=== PATIENT | female | born 1985 | race Caucasian/White ===

== ENCOUNTER → 2019-08-20 10:38 | Outpatient (CLI) | payer OTHER, SELFPAY ==
--- NOTE | 2019-08-20 | DI.US.S_ITS ---
PROCEDURE: US OB <= 14 WEEKS FETUS INDICATIONS: SIZE AND DATES OUTSIDE/PRIOR DATING DATA: Last menstrual period (LMP): 06/26/19. LMP-based estimated date of delivery (ALICIA): 04/01/20. First dating scan (date and location): 08/20/19, this study. Estimated date of delivery (ALICIA) from first dating scan: 04/09/20. TECHNIQUE: Real-time scanning was performed of the fetus and maternal pelvic organs, with image documentation. Endovaginal scanning was also performed to better visualize the fetus and maternal ovaries. COMPARISON: None. FINDINGS: Embryo: May-rump length 8 mm correlates with a gestational age of 6 weeks 5 days, plus or -5 days. Heart rate 130 beats per minute. Measurement variability in dating: +/- 4 weeks by LMP, +/- 7 days by mean sac diameter (use before 6 weeks gestation if crown-rump length not able to be measured), +/- 5 days by crown-rump length (up to 8 weeks 6 days gestation), +/- 7 days by crown-rump length (up to 13 weeks 6 days gestation). Maternal organs: Ovaries normal considering gestational status with 2 simple cysts noted at the left ovary measuring up to 2.3 cm and 2.8 cm respectively. Limited images through the kidneys demonstrate no hydronephrosis. IMPRESSION: Single living intrauterine gestation with gestational age 6 weeks 5 days and delivery date projected to be centered on 04/09/20, plus or -5 days. Dictated by: Sandro Andrews M.D. on 08/20/2019 at 12:20 Approved by: Sandro Andrews M.D. on 08/20/2019 at 12:22
== END ==
PROVIDERS: PCP Registered Nurse Women's Health Care, Ambulatory; Visit Provider Student in an Organized Health Care Education/Training Program
DX: O26.841 Uterine size-date discrepancy, first trimester (principal); Z3A.01 Less than 8 weeks gestation of pregnancy
CPT/HCPCS: 76801

== ENCOUNTER → 2020-03-12 09:10 | Outpatient (CLI) | payer OTHER, SELFPAY ==
--- NOTE | 2020-03-12 09:13 | DI.US.S_ITS ---
PROCEDURE: US OB FOLLOW UP INDICATIONS: EFW; CHRIS; POSITION OUTSIDE/PRIOR DATING DATA: Last menstrual period (LMP): 06/26/19. LMP-based estimated date of delivery (ALICIA): 04/01/20. First dating scan (date and location): 08/20/19, this study. Estimated date of delivery (ALICIA) from first dating scan: 04/09/20.. TECHNIQUE: Real-time scanning was performed of the fetus, with image documentation and biometric measurements. Endovaginal scanning: No COMPARISON: [facility], OB <= 14 WEEKS FETUS, 08/20/2019, 10:54. FINDINGS: General: A single living intrauterine gestation is present. Presentation: Vertex. Placenta: Placental position is anterior, without previa. Amniotic fluid index: 19.5 cm, normal range is 5-24 cm. heart rate: 136 beats per minute. Maternal cervical canal: Not well-seen. biometrics: Biparietal diameter: 37 weeks 2 days Head circumference: 38 weeks 2 days Abdominal circumference: 39 weeks 1 day Femur length: 36 weeks 0 days Estimated gestational age from initial scan: 36 weeks 0 days Composite gestational age from present scan: 37 weeks 5 days Estimated weight and percentile: 3408 g; 95th percentile Measurement variability for biometric dating: +/- 7 days from 14 weeks to 15 weeks 6 days gestation, +/- 10 days from 16 weeks to 21 weeks 6 days gestation, +/- 2 weeks from 22 weeks to 27 weeks 6 days gestation, +/- 3 weeks for 28 weeks gestation or later. weight reference: 4500 g or EFW >90/95% is considered macrosomia or large for gestational age. EFW <10% is small for gestational age. EFW 5% or less is considered intra-uterine growth restriction. Other: Not applicable. IMPRESSION: 1. Single living IUP redemonstrated and interval growth is greater than expected with estimated weight 95th percentile. Developing macrosomia cannot be excluded and close clinical correlation and followup recommended. Dictated by: You FERGUSON Interpreted: Paty Ireland MD on 03/12/2020 at 10:45 Approved by: Paty Ireland MD, PhD on 03/12/2020 at 14:55
== END ==
PROVIDERS: PCP Student in an Organized Health Care Education/Training Program; Referring Provider Student in an Organized Health Care Education/Training Program; Visit Provider Student in an Organized Health Care Education/Training Program
DX: Z36.89 Encounter for other specified antenatal screening (principal); Z3A.37 37 weeks gestation of pregnancy
CPT/HCPCS: 76816

== ENCOUNTER → 2020-03-19 09:36 | Outpatient (ROUT) | payer OTHER, SELFPAY ==
[2020-03-20 16:31] LABS: Strep Grp B PCR NEG for Grp B Strep
== END ==
PROVIDERS: PCP Student in an Organized Health Care Education/Training Program; Visit Provider Student in an Organized Health Care Education/Training Program
DX: Z34.90 Encounter for supervision of normal pregnancy, unspecified, unspecified trimester (principal)
CPT/HCPCS: 87653

== ENCOUNTER → 2020-03-19 12:35 | Outpatient (CLI) | payer OTHER, SELFPAY ==
--- NOTE | 2020-03-19 | DI.US.S_ITS ---
PROCEDURE: US OB LIMITED INDICATIONS: CHRIS GROWTH OUTSIDE/PRIOR DATING DATA: Last menstrual period (LMP): 06/26/19. LMP-based estimated date of delivery (ALICIA): 04/01/20. First dating scan (date and location): 08/20/19, this study. Estimated date of delivery (ALICIA) from first dating scan: 04/09/20. TECHNIQUE: Real-time scanning was performed of the fetus, with image documentation and biometric measurements. Endovaginal scanning: No COMPARISON: None. FINDINGS: General: A single living intrauterine gestation is present. Presentation: Vertex. Placenta: Placental position is anterior, without previa. Amniotic fluid index: 13.1 cm, normal range is 5-24 cm. heart rate: 133 beats per minute. Maternal cervical canal: 4.8 cm long. Normal lower limit is 2.5 cm. biometrics: Biparietal diameter: 37 weeks 4 days Head circumference: 37 weeks 4 days Abdominal circumference: 37 weeks 3 days Femur length: 36 weeks 3 days Estimated gestational age from initial scan: 37 weeks 0 days Composite gestational age from present scan: 37 weeks 2 days Estimated weight and percentile: 3151 g; 63rd percentile Measurement variability for biometric dating: +/- 7 days from 14 weeks to 15 weeks 6 days gestation, +/- 10 days from 16 weeks to 21 weeks 6 days gestation, +/- 2 weeks from 22 weeks to 27 weeks 6 days gestation, +/- 3 weeks for 28 weeks gestation or later. weight reference: 4500 g or EFW >90/95% is considered macrosomia or large for gestational age. EFW <10% is small for gestational age. EFW 5% or less is considered intra-uterine growth restriction. Other: Not applicable. IMPRESSION: Living shelley IUP redemonstrated and interval growth is normal. Dictated by: You Marquis [facility] Interpreted: Paty Ireland MD on 03/19/2020 at 13:42 Approved by: Paty Ireland MD, PhD on 03/19/2020 at 16:46
== END ==
PROVIDERS: PCP Student in an Organized Health Care Education/Training Program; Referring Provider Student in an Organized Health Care Education/Training Program; Visit Provider Student in an Organized Health Care Education/Training Program
DX: Z36.89 Encounter for other specified antenatal screening (principal); Z3A.37 37 weeks gestation of pregnancy
CPT/HCPCS: 76815; 87653

== ENCOUNTER → 2020-03-28 09:28 | Outpatient (CLI) | payer OTHER, SELFPAY ==
[2020-03-29 10:29] LABS: COVID19 Sendout Not Detected (Not Detect)
== END ==
PROVIDERS: PCP Student in an Organized Health Care Education/Training Program; Visit Provider Physician Assistant
DX: Z01.812 Encounter for preprocedural laboratory examination (principal)
CPT/HCPCS: 87635

== ENCOUNTER 2020-03-31 19:28 | Observation (INO) | payer OTHER, SELFPAY ==
--- NOTE | 2020-03-31 20:36 | PM.OBHP.1 ---
OB HPI Date/Time Date of admission: 03/31/20 Date Patient Seen: 03/31/20 Time Patient Seen: 20:36 History of Present Condition Chief complaint: : 1 Para: 1 Narrative: Alessandra David is a 35 year old at 38w5d with ALICIA of 04/09/20 per first trimester ultrasound. She presents for induction of labor secondary to autosomal dominant hypophosphatemic maternal rickets and obesity with risk for macrosomia, US at 36w0d showed an EFW of 3408 g, 95th percentile. She has been followed closely by maternal medicine and endocrinology during her and they recommended delivery at 39+ weeks as long as her pelvis was adequate. MFM ultrasounds at 20 and 29 weeks were unremarkable. At 37 WGA, her home blood pressure started to trend up, 130s/140s/80s and she complained of ankle edema and visual twinkles. PIH labs were remarkable for a slightly elevated 24 hour urine protein at 240 mg. She is currently normotensive but reports that she continues to have visual changes and worsening edema. No right upper quadrant pain, headache, nausea, or vomiting. Her chronic medical conditions include diet-controlled hyperlipidemia, PCOS, and metabolic syndrome controlled with metformin. She has been on a prophylactic diabetic diet since her 1st trimester and her weight gain has been appropriate. Both 2nd and 3rd trimester glucolas were negative but her 28 week glucola was borderline. She does have chronic pain secondary to osteomalacia from rickets and has been dependent on hydrocodone/acetaminophen 5/325, 1 tab p.o. t.i.d.. She completely weaned off of this medication by 37 weeks. Finally, she has depression and anxiety that is chronically controlld with escitalopram 10 mg p.o. q.day and BuSpar 15 mg p.o. q.day. She weaned off both of these medications by 37 weeks. LABS/IMAGING: ABO O positive, antibody negative on 09/17/2019. Rubella immune. Hepatitis-B surface antigen negative. HIV, HSV 1 and 2 negative. GC/chlamydia negative. Treponemal antibody negative. Varicella titer positive. Pap smear plus HPV DNA negative on 09/03/19. Urine culture negative on 09/03/19. Hemoglobin/hematocrit 13.0/38.4 on 09/17/19. Repeat hemoglobin/hematocrit 13.3/39.3 on 03/19/20. TSH within normal limits. 1 hour Glucola 89 on 11/06/19 and 139 on 01/16/20. Three hour glucola on 01/21/20 was negative but borderline. GBS negative on 03/19/20. NIPT negative, 09/17/19, female. Dating US 08/20/19: Single live IUP, 6w5d, ALICIA 04/09/2020 Anatomy Scan 11/21/2019: Within normal limits, anterior placenta without previa Growth Scan 03/12/20: EFW 3408 g, 95th percentile, CHRIS 19.5 cm, vertex Growth Scan 03/19/20: EFW 3151 g, 63rd percentile, CHRIS 13.1 cm, vertex OBSTETRIC HISTORY: GYNECOLOGICAL HISTORY: None PAST MEDICAL HISTORY: 1. Autosomal dominant hypophosphatemic rickets, diagnosed at , multiple femur fractures 2. 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 Obesity, BMI 37.97 4. Hyperlipidemia, diet controlled 5. Metabolic syndrome, on prophylactic metformin 6. Depression 7. Anxiety 8. PCOS 9. Vitamin-D deficiency PAST SURGICAL HISTORY: Right knee arthroscopy Achilles tendon repair Spur removal, left ankle Osteotomies, multiple FAMILY HISTORY: Father: Hyperlipidemia Mother: Prediabetes, depression, hypertension, osteoporosis, rickets Siblings: Depression, rickets Maternal grandmother: Diabetes, rickets SOCIAL HISTORY: High school graduate, works at [employer] in [place]. to Emil, works in the [employer]. Emil involved and very supportive. They were unable to conceive for many years, thrilled to be . [facility] Social History Smoking Status: Former smoker Meds Home Medications and Allergies Home Medications Medication Instructions Recorded Confirmed Type BusPIRone Hydrochloride (BUSPAR 15 mg PO BID #0 08/14/12 History DIVIDOSE~) citalopram [Celexa] 10 mg PO QDAY #0 08/14/12 History Allergies Allergy/AdvReac Type Severity Reaction Status Date / Time codeine [CODEINE] Allergy Unknown Verified 03/28/20 09:31 Sulfa (Sulfonamide Allergy Unknown Verified 03/31/20 19:38 Antibiotics) Review of Systems Review of Systems ROS: Yes All systems reviewed with the patient and are negative except as otherwise documented Exam Narrative Exam Narrative: General: NAD Skin: Color unremarkable, no rash nor lesions HEENT: Neck supple with midline trachea Lungs: CTAB Heart: Normal rate, and regular rhythm, S1, S2 normal, no murmur, click, rub or gallop Abdomen: Gravid, soft, non-tender Extremities: No cord, no edema, no cyanosis Pelvis: Normal female external genitalia Presentation: vertex Cervix: Fingertip/-50/-3/posterior/soft Monitoring: Variability: Moderate Baseline: 135 Accelerations: Present Decelerations: Absent Contractions: Intermittent Strength: Mild Objective Labs Result Diagrams: 03/31/20 20:15 03/31/20 21:25 Assessment and Plan Assessment and Plan Assessment and Plan narrative: 1. IUP at 38w5d 2. 3. Autosomal dominant hypophosphatemic rickets, maternal 4. Maternal obesity, BMI 37.97 5. Risk for macrosomia 6. Risk for preeclampsia 7. Borderline gestational diabetes 8. Metabolic syndrome, chronic 9. Hyperlipidemia, chronic 10. 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 Depression 12. Anxiety 13. Maternal short stature, 4'11 Plan: Admit to Labor and delivery for cervadil induction with routine orders. Will also check PIH labs and follow vitals signs closely. Patient has risk factors for a failed induction secondary to her unfavorable cervix, possible macrosomia, maternal rickets presenting potential challenges with full external hip rotation during the 2nd stage, and her short stature. Per Dr. Garcia, a trial of labor is reasonable if she is able to soften her cervix tonight and if the head engages into the pelvic canal. If that does not happen, Dr. Garcia did say that a planned is reasonable and should occur in the 39-40 week window, with no maternal or benefit to prolongation past 39+ weeks. Hopeful patient will be able to ripen her cervix tonight and achieve a vaginal . Will check on her again in the morning, sooner if needed. Questions answered, appropriate consents will be signed.
[2020-03-31] MEDS: DINOPROSTONE VAG (CERVIDIL) 10 MG VAG (20:42)
[2020-03-31 21:26] LABS: Add Manual Diff / Slide Review NO; Basophils Absolute Auto 0 /uL (0-100); Basophils Percent Auto 0.3 % (0-2); Eosinophils Absolute Auto 100 /uL (0-450); Eosinophils Percent Auto 0.9 % (2-4); Hematocrit 39.6 % (36-46); Hemoglobin 13.5 g/dL (12.0-16.0); Lymphocytes Absolute Auto 2300 /uL (1100-4500); Lymphocytes Percent Auto 21.5 % (25-40); Mean Corpuscular HGB Conc 34.1 % (30-36); Mean Corpuscular Hemoglobin 30.1 PG (26-34); Mean Corpuscular Volume 88.1 fL (80-100); Monocytes Absolute Auto 800 /uL (0-900); Monocytes Percent Auto 7.2 % (3-14); Neutrophils Absolute Auto 7300 /uL (1500-7000); Neutrophils Percent Auto 70.1 % (50-75); Platelet Count 207 X10^3/uL (150-400); Red Cell Distribution Width 14.6 % (11.6-14.8); White Blood Cell Count 10.5 X10^3/uL (4.5-11.0)
[2020-03-31 21:41] LABS: Aspartate Aminotransferase 25 IU/L (14-36); BUN Creatinine Ratio 27.9 (6-22); Blood Urea Nitrogen 12 mg/dL (7-17); Estimated Glomerular Filt Rate > 60.0 mL/min (>60); Uric Acid 5.8 mg/dL (2.5-6.2)
[2020-03-31 21:59] VITALS: BP 123/70
--- NOTE | 2020-04-01 08:51 | PM.OBPNLAB ---
Date/Time Date Patient Seen: 04/01/20 Time Patient Seen: 08:52 Pain Control Pain control: tolerating well Comments: Doing well, not much sleep overnight. Feeling contractions but nothing I can't handle. Cervidil in place, ready for removal. Pelvic Exam Dilation (cm): 1 Effacement (%): 50 station: -3 Amniotic membrane status: Intact Comments: posterior, soft Contractions Contractions on admission: irregular Monitor mode: External Contraction frequency (min): 5 Contraction duration (min): 1 Contraction pattern: Irregular Contraction intensity: Moderate Status status: Category ll Heart Rate Baseline: 125 Monitor Accelerations: Present Monitor Decelerations: Variable Monitor Variability: Moderate Assessment and Plan Assessment: induction ongoing Plan: continuous present management Comments: 1. Will start pitocin after commercial lines manager appropriate, 11 am. In the meantime, patient will walk and bounce on birthing ball.
--- NOTE | 2020-04-01 12:56 | PM.OBPNLAB ---
Date/Time Date Patient Seen: 04/01/20 Time Patient Seen: 12:57 Pain Control Pain control: tolerating well Comments: Induction on hold secondary to staffing. Patient has been off the monitor, contractions have spaced out. Has had a shower and food, feeling well. Pelvic Exam Dilation (cm): 1 Effacement (%): 50 station: -3 Amniotic membrane status: Intact Contractions Monitor mode: None Assessment and Plan Assessment: induction ongoing Comments: 1. Will start Pitocin induction now that staffing is arranged, hopeful for .
[2020-04-01] MEDS: LACTATED RINGERS 1,000 ML 100 ML IV ×2 (13:46→19:39)
[2020-04-01] MEDS: OXYTOCIN PREMIX 30 UNIT/500 ML PLAST..BAG IV (13:46)
--- NOTE | 2020-04-01 18:28 | PM.OBPNLAB ---
Date/Time Date Patient Seen: 04/01/20 Time Patient Seen: 18:28 Pelvic Exam Dilation (cm): 1 Effacement (%): 50 station: -3 Amniotic membrane status: Intact Comments: 1.5/50/-3/posterior/soft Contractions Monitor mode: None Pitocin rate (mU/min): 17 Contraction frequency (min): 3 Contraction duration (min): 1 Contraction pattern: Regular Contraction intensity: Moderate Status status: Category ll Heart Rate Baseline: 135 Monitor Accelerations: Present Monitor Decelerations: Variable Monitor Variability: Moderate Assessment and Plan Assessment: induction ongoing Plan: continuous present management
--- NOTE | 2020-04-01 21:11 | PM.EVENT ---
Event Note Date Patient Seen: 04/01/20 Time Patient Seen: 21:11 Event Note: Called by OB RN regarding urgent staffing shortage tonight. Unable to continue pitocin induction as one-to-one care is unavailable. Will plan to labor rest patient overnight and restart pitocin when staffing again available between 3-7 am. Mother and fetus otherwise doing well.
[2020-04-01] MEDS: hydrOXYzine pamoate 25 MG CAPSULE 50 MG PO (22:16)
--- NOTE | 2020-04-02 08:27 | P.DS_ITS ---
Discharge Providers Provider Date of admission: 03/31/20 19:28 Discharge Date: 04/02/20 Primary care physician: Tanisha More MD Discharge provider: Tanisha More MD Summary Hospital Course Date Patient Seen: 04/02/20 Time Patient Seen: 08:15 Hospital Course: Patient was admitted for Cervidil induction but on the following morning, due to staffing shortages, Pitocin was delayed and not able to be started until mid- day. By evening shift change that same day, there were again staffing shortages and patient was not able to be continued on pitocin throughout the night. On morning of discharge, patient was emotionally taxed from the starting and stopping of her induction and decided to electively return after the holiday when staffing numbers were back to normal and retry her induction on 04/07/20. She will still be in the recommended delivery window per MFM at that time. Her cervix was closed upon admission and is now 1.5/50/03/pos terior/soft. Discussed with patient that additional time would be advantageous for a more favorable induction and she understands to return in the meantime with spontaneous labor. Patient has risk factors for preeclampsia including a mildly elevated 24 hour urine protein, nondiagnostic for preeclampsia. Admission [facility] labs were within normal limits and blood pressures throughout her stay were normal. Time spent on Discharge and Coordination of post-hospital care: 35 minutes Status at Discharge Cognitive/behavioral status at discharge: at baseline, oriented Functional status at discharge: independent ambulation Overall status at discharge: patient is back to baseline Time Spent with Patient Time attestation: Total time spent providing and/or coordinating discharge services: Objective Labs Result Diagrams: 03/31/20 20:15 03/31/20 21:25 Exam Narrative Exam Narrative: General: NAD Skin: Color unremarkable, no rash nor lesions HEENT: Neck supple with midline trachea Lungs: CTAB Heart: Normal rate, and regular rhythm, S1, S2 normal, no murmur, click, rub or gallop Abdomen: Gravid, soft, non-tender Extremities: No cord, no edema, no cyanosis Pelvis: Normal female external genitalia Presentation: vertex Cervix: 1.5/-50/-3/posterior/soft Monitoring: Variability: Moderate Baseline: 135 Accelerations: Present Decelerations: Variables Contractions: Intermittent Strength: mild Discharge Plan Discharge Plan Patient Disposition: Home Discharge orders & Medications Prescriptions: Discontinued BusPIRone Hydrochloride (BUSPAR DIVIDOSE~) 15 mg PO BID Qty: 0 RF: 0 citalopram [Celexa] 10 MG tablet 10 mg PO QDAY Qty: 0 RF: 0 Follow up/Referrals: Tanisha More MD [Primary Care Provider] - (Induction on Monday, April at 0700 at [facility]) Diet/Activity/Treatments Diet: Diet as Tolerated Activity: as tolerated Skin/Wound/Dressing Care Report to your healthcare provider any signs of infection, such as:: chills, fever, increased pain and unusual drainage Visit Report/Discharge Packet Visit Report Forms: Patient Portal/API, Stroke Signs & Symptoms Discharge Data Primary Care Provider: Tanisha More Attending Provider: Tanisha More Admit Date/Time: 03/31/20 19:28 Discharges patient from system. Discharge Date/Time: 04/02/20 08:38
== END 2020-04-02 08:38 | disposition home or self-care (01) ==
PROVIDERS: Admitting Provider Student in an Organized Health Care Education/Training Program; PCP Student in an Organized Health Care Education/Training Program; Referring Provider Student in an Organized Health Care Education/Training Program; Visit Provider Student in an Organized Health Care Education/Training Program
DX: O99.283 Endocrine, nutritional and metabolic diseases complicating pregnancy, third trimester (principal); O12.23 Gestational edema with proteinuria, third trimester; O99.213 Obesity complicating pregnancy, third trimester; E72.09 Other disorders of amino-acid transport; Z3A.38 38 weeks gestation of pregnancy
CPT/HCPCS: 36415; 59050; 59200; 84450; 84550; 85025; 86850; 86900; 86901; G0378; G0379; J2590

== ENCOUNTER 2020-04-07 00:24 | Inpatient (IN) | payer OTHER, SELFPAY ==
--- NOTE | 2020-04-07 00:41 | DI.US.S_ITS ---
PROCEDURE: US OB >= 14 WEEKS FETUS INDICATIONS: POSITION OUTSIDE/PRIOR DATING DATA: Last menstrual period (LMP): 06/26/19. LMP-based estimated date of delivery (ALICIA): 04/01/20. First dating scan (date and location): 08/20/19. Estimated date of delivery (ALICIA) from first dating scan: 04/09/20. TECHNIQUE: Real-time scanning was performed of the fetus, with image documentation and biometric measurements. Endovaginal scanning: Not needed for this study COMPARISON: None. FINDINGS: General: A single living intrauterine gestation is present. Presentation: Breech. Placenta: Placental position is anterior, without previa. Amniotic fluid index: 6.3 cm as a single pocket, oligohydramnios. heart rate: 158 beats per minute. Maternal cervical canal: Not visualized and the patient declined transvaginal scanning. IMPRESSION: Breech presentation, amniotic fluid index of 6.3 cm as a single pocket-oligohydramnios. The cervix could not be adequately visualized by transabdominal scanning, the patient declined transvaginal scanning. Dictated by: Sandro Andrews M.D. on 04/07/2020 at 8:28 Approved by: Sandro Andrews M.D. on 04/07/2020 at 8:33
[2020-04-07 01:00] VITALS: BP 137/83
[2020-04-07 01:14] LABS: Add Manual Diff / Slide Review NO; Basophils Absolute Auto 100 /uL (0-100); Basophils Percent Auto 0.4 % (0-2); Eosinophils Absolute Auto 100 /uL (0-450); Eosinophils Percent Auto 0.7 % (2-4); Hematocrit 40.6 % (36-46); Hemoglobin 13.4 g/dL (12.0-16.0); Lymphocytes Absolute Auto 1900 /uL (1100-4500); Lymphocytes Percent Auto 12.8 % (25-40); Mean Corpuscular HGB Conc 33.1 % (30-36); Mean Corpuscular Hemoglobin 29.3 PG (26-34); Mean Corpuscular Volume 88.6 fL (80-100); Monocytes Absolute Auto 900 /uL (0-900); Monocytes Percent Auto 6.1 % (3-14); Neutrophils Absolute Auto 12000 /uL (1500-7000); Platelet Count 214 X10^3/uL (150-400); Red Blood Cell Count 4.58 X10^6/uL (4.0-5.2); Red Cell Distribution Width 14.8 % (11.6-14.8)
--- NOTE | 2020-04-07 01:27 | PM.OBHP.1 ---
OB HPI Date/Time Date of admission: 04/07/20 Date Patient Seen: 04/07/20 Time Patient Seen: 01:29 History of Present Condition Chief complaint: Evaluation of Labor : 1 Para: 0 Estimated Date of Delivery: 02/08/20 Narrative: Alessandra David is a 35 year old at 39w5d with ALICIA of 04/09/20 per first trimester ultrasound. She presents with active labor complicated by footling breech presentation, new and confirmed by bedside US. Membranes intact, CHRIS approximately 6, 3 cm of dilation. She has had two late third trimester ultrasounds at 36 and 37 WGA, both vertex. She recently had an attempted induction of labor at 38w5d secondary to autosomal dominant hypophosphatemic maternal rickets and obesity with risk for macrosomia as US at 36w0d showed an EFW of 3408 g, 95th percentile. Induction was discontinued secondary to beater out leveling machine shortages during the holiday weekend, patient was 1.5 cm dilated upon discharge. Per digital cervical exam and Zia's maneuvers, she was vertex at that time. She reports that she had lots of big movements over the weekend and started to feel more pelvic pressure in the last 2 nights. Her contractions became more intense about 6 hours prior to presentation with contractions every 3-5 minutes. She has been followed closely by maternal medicine and endocrinology during her and they recommended delivery at 39+ weeks as long as her pelvis was adequate. MFM ultrasounds at 20 and 29 weeks were unremarkable. At 37 WGA, her home blood pressure started to trend up, 130s-140s/80s and she complained of ankle edema and visual twinkles. PIH labs were remarkable for a slightly elevated 24 hour urine protein at 240 mg. Repeat PIH labs at time of admission for her induction were within normal limits. She was normotensive throughout her induction and is normotensive now. She has had ongoing visual changes and ankle edema. No right upper quadrant pain, headache, nausea, or vomiting. Her chronic medical conditions include diet-controlled hyperlipidemia, PCOS, and metabolic syndrome controlled with metformin. She has been on a prophylactic diabetic diet since her 1st trimester and her weight gain has been appropriate. Both 2nd and 3rd trimester glucolas were negative but her 28 week glucola was borderline. She does have chronic pain secondary to osteomalacia from rickets and has been dependent on hydrocodone/acetaminophen 5/325, 1 tab p.o. t.i.d.. She completely weaned off of this medication by 37 weeks. Finally, she has depression and anxiety that is chronically controlled with escitalopram 10 mg p.o. q.day and BuSpar 15 mg p.o. q.day. She weaned off both of these medications by 37 weeks. LABS/IMAGING: ABO O positive, antibody negative on 09/17/2019. Rubella immune. Hepatitis-B surface antigen negative. HIV, HSV 1 and 2 negative. GC/chlamydia negative. Treponemal antibody negative. Varicella titer positive. Pap smear plus HPV DNA negative on 09/03/19. Urine culture negative on 09/03/19. Hemoglobin/hematocrit 13.0/38.4 on 09/17/19. Repeat hemoglobin/hematocrit 13.3/39.3 on 03/19/20. TSH within normal limits. 1 hour Glucola 89 on 11/06/19 and 139 on 01/16/20. Three hour glucola on 01/21/20 was negative but borderline. GBS negative on 03/19/20. NIPT negative, 09/17/19, female. Dating US 08/20/19: Single live IUP, 6w5d, ALICIA 04/09/2020 Anatomy Scan 11/21/2019: Within normal limits, anterior placenta without previa Growth Scan 03/12/20: EFW 3408 g, 95th percentile, CHRIS 19.5 cm, vertex Growth Scan 03/19/20: EFW 3151 g, 63rd percentile, CHRIS 13.1 cm, vertex OBSTETRIC HISTORY: GYNECOLOGICAL HISTORY: None PAST MEDICAL HISTORY: 1. Autosomal dominant hypophosphatemic rickets, diagnosed at , multiple femur fractures 2. 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 Obesity, BMI 37.97 4. Hyperlipidemia, diet controlled 5. Metabolic syndrome, on prophylactic metformin 6. Depression 7. Anxiety 8. PCOS 9. Vitamin-D deficiency PAST SURGICAL HISTORY: Right knee arthroscopy Achilles tendon repair Spur removal, left ankle Osteotomies, multiple FAMILY HISTORY: Father: Hyperlipidemia Mother: Prediabetes, depression, hypertension, osteoporosis, rickets Siblings: Depression, rickets Maternal grandmother: Diabetes, rickets SOCIAL HISTORY: High school graduate, works at [employer] in [place]. to Emil, works in the [employer]. Emil involved and very supportive. They were unable to conceive for many years, thrilled to be . Evaluation Evaluation Laboratory results: Laboratory Tests 04/07/20 01:00 WBC 15.0 H RBC 4.58 Hgb 13.4 Hct 40.6 MCV 88.6 MCH 29.3 MCHC 33.1 RDW 14.8 Plt Count 214 Neut % (Auto) 80.0 H Lymph % (Auto) 12.8 L [place] % (Auto) 6.1 Eos % (Auto) 0.7 L Baso % (Auto) 0.4 Neut # (Auto) 03932 H Lymph # (Auto) 1900 [place] # (Auto) 900 Eos # (Auto) 100 Baso # (Auto) 100 PFSH Social History Smoking Status: Never smoker Meds Home Medications and Allergies Allergies Allergy/AdvReac Type Severity Reaction Status Date / Time sumatriptan [From Imitrex] Allergy Intermediate Hives Verified 04/07/20 00:58 codeine [CODEINE] Allergy Unknown Verified 03/28/20 09:31 Sulfa (Sulfonamide Allergy Unknown Verified 03/31/20 19:38 Antibiotics) Review of Systems Review of Systems ROS: Yes All systems reviewed with the patient and are negative except as otherwise documented Exam Vital Signs (past 8 hours): - 04/07/20 01:00 Blood Pressure 137/83 Narrative Exam Narrative: General: NAD Skin: Color unremarkable, no rash nor lesions HEENT: Neck supple with midline trachea Lungs: CTAB Heart: Normal rate, and regular rhythm, S1, S2 normal, no murmur, click, rub or gallop Abdomen: Gravid, soft, non-tender Extremities: No cord, no edema, no cyanosis Pelvis: Normal female external genitalia Presentation: footling breech Cervix: 3/90/-2/midline/soft Monitoring: Variability: Moderate Baseline: 135 Accelerations: Present Decelerations: Variables Contractions: q3 minutes Strength: firm Objective Labs Result Diagrams: 04/07/20 01:00 Labs: Laboratory Results - last 24 hr 04/07/20 01:00 WBC 15.0 H RBC 4.58 Hgb 13.4 Hct 40.6 MCV 88.6 MCH 29.3 MCHC 33.1 RDW 14.8 Plt Count 214 Neut % (Auto) 80.0 H Lymph % (Auto) 12.8 L [place] % (Auto) 6.1 Eos % (Auto) 0.7 L Baso % (Auto) 0.4 Neut # (Auto) 41314 H Lymph # (Auto) 1900 [place] # (Auto) 900 Eos # (Auto) 100 Baso # (Auto) 100 Assessment and Plan Assessment and Plan Assessment and Plan narrative: 1. IUP at 39w5d 2. 3. Footling breech 4. Autosomal dominant hypophosphatemic rickets, maternal 5. Maternal obesity, BMI 37.97 6. Risk for macrosomia 7. Risk for preeclampsia 8. Borderline gestational diabetes 9. Metabolic syndrome, chronic 10. Hyperlipidemia, chronic 11. Chronic pain secondary to osteomalacia from rickets, narcotic dependent, now weaned 12. Depression 13. Anxiety 14. Maternal short stature, 4'11 Plan: Will proceed with emergent . Questions answered, appropriate consents will be signed.
[2020-04-07] MEDS: GENTAMICIN IV (01:53)
[2020-04-07] MEDS: LACTATED RINGERS 1,000 ML 120 ML IV ×2 (01:53→02:55)
[2020-04-07] MEDS: SODIUM CHLORIDE 0.9% IV (01:53)
[2020-04-07] MEDS: CLINDAMYCIN 900 MG/50 ML PIGGYBACK 50 MG IV (02:01)
--- NOTE | 2020-04-07 02:26 | SUR.OPER ---
VIABLE FEMALE INFANT DELIVERED AT 0227. CORD BLOOD AND PLACENTA TO OB WITH RN.
[2020-04-07 03:17] VITALS: BP 114/69; PULSE 95; RESP 13; TEMP 36.3; O2SAT 98
[2020-04-07 03:22] VITALS: BP 131/76; PULSE 89; RESP 11; TEMP 36; O2SAT 98
[2020-04-07 03:27] VITALS: BP 129/75; PULSE 94; RESP 11; TEMP 36; O2SAT 98
[2020-04-07 03:32] VITALS: BP 124/73; PULSE 86; RESP 14; TEMP 35.9; O2SAT 99
--- NOTE | 2020-04-07 03:48 | P.OP_ITS ---
Operative Date/Time/Diagnoses Date of procedure: 04/07/20 Time of procedure: 03:48 Pre-op diagnosis: 1. IUP at 39w5d 2. 3. Footling breech 4. Autosomal dominant hypophosphatemic rickets, maternal 5. Maternal obesity, BMI 37.97 6. Risk for macrosomia 7. Risk for preeclampsia 8. Borderline gestational diabetes 9. Metabolic syndrome, chronic 10. Hyperlipidemia, chronic 11. Chronic pain secondary to osteomalacia from rickets, narcotic dependent, now weaned 12. Depression 13. Anxiety 14. Maternal short stature, 4 Post-op diagnosis: same (plus status post primary low transverse section) Procedure & Clinicians Procedure: Primary section, low-transverse Same procedure as scheduled: Yes Indications: 1. IUP at 39w5d 2. 3. Footling breech 4. Autosomal dominant hypophosphatemic rickets, maternal 5. Maternal obesity, BMI 37.97 6. Risk for macrosomia 7. Risk for preeclampsia 8. Borderline gestational diabetes 9. Metabolic syndrome, chronic 10. Hyperlipidemia, chronic 11. Chronic pain secondary to osteomalacia from rickets, narcotic dependent, now weaned 12. Depression 13. Anxiety 14. Maternal short stature, Surgeon: Tanisha More Telephonic Case Manager: Sundar Baird Click Yes if Unassisted: No Anesthesia Type: Spinal Operative Notes Findings: Viable female infant, weight 7 lb 10 oz. Apgars 7/9, footling breech presentation. Normal uterus, tubes, and ovaries. Closure Type: primary Specimen(s): none sent Estimated Blood Loss (mL): 200 Blood products transfused: none Procedure in detail: Anesthesia: Spinal Complications: None Estimated blood loss: 200 Fluids: 1600 CC crystalline Urine output: 150 cc clear urine at end of procedure. The patient was taken to the operating room where spinal anesthesia was found to be adequate. She was then prepared and draped in the normal sterile fashion in the dorsal supine position with a leftward tilt. A Pfannenstiel skin incision was then made with a scalpel and carried through to the underlying layer of fascia. The fascia was incised in the midline and the incision extended laterally with Harper scissors. The superior aspect of the fascial incision was then grasped with the Marcelino clamps elevated, and the underlying rectus muscles dissected off bluntly. Attention was then turned to the inferior aspect of this incision, which in a similar fashion, was grasped, tented up with the Marcelino clamps, and the rectus muscle dissected off bluntly. The rectus muscles were then in the midline, and the peritoneum identified, tented up, and entered sharply with Metzenbaum scissors. The peritoneal incision was then extended superiorly and inferiorly with good visualization of the bladder. The bladder blade was then inserted and the vesicouterine peritoneum identified, grasped with pickups, and entered sharply with Metzenbaum scissors. This incision was then extended laterally and the bladder flap created digitally. The bladder blade was then reinserted and the lower uterine uterine segment incised in a transverse fashion with the scalpel. The uterine incision was then extended laterally digitally. The bladder blade was removed and the 's feet, body, and head delivered atraumatically. The nose and mouth were suctioned with DeLee suction trap and the cord clamped and cut. They was handed off to the nurses in attendance. The placenta was then removed manually; the uterus exteriorized, and cleared of all clots and debris. The uterine incision was repaired with 0 chromic in a running locking fashion. A second layer of the same suture was used to obtain excellent hemostasis. The bladder flap was repaired with 3-0 Vicryl in a running stitch and the uterus returned to the abdomen. The gutters were cleared of all clots and the peritoneum closed with 3-0 Vicryl. The rectus was loosely approximated using 0 chromic. The fascia was reapproximated with 0 Vicryl in a running fashion. The subcutaneous layer was closed with 2-0 chromic. The skin was closed with sutures. The patient tolerated the procedure well. Sponge lap and needle counts were correct x2. Clindamycin and gentamicin was given at beginning a procedure. The patient was taken to the recovery room in stable condition. Complications: none Post-operative Condition: stable Disposition: PACU Plan for aftercare: 1. Routine care.
--- NOTE | 2020-04-07 03:52 | SUR.PHASEI ---
Patient taken to room in center. Left in stable condition with receiving RN at bedside.
[2020-04-07] MEDS: TERBUTALINE 1 MG/ML VIAL 0.25 MG SUBCUT (04:50)
[2020-04-07] MEDS: LACTATED RINGERS 1,000 ML 100 ML IV (04:54)
[2020-04-07] MEDS: diphenhydrAMINE 50 MG/ML VIAL 25 MG IV ×2 (05:37→16:11)
[2020-04-07 08:02] LABS: COVID19 -Nasal RAPID Negative (Negative)
[2020-04-07] MEDS: PRENATAL VIT,CALC/IRON/FOLIC 1 TABLET 1 TAB PO (08:42)
[2020-04-07] MEDS: DOCUSATE 250 MG CAPSULE PO (08:42)
[2020-04-07] MEDS: KETOROLAC 30 MG/ML VIAL IV ×3 (08:58→21:05)
[2020-04-07] MEDS: hydrOXYzine pamoate 25 MG CAPSULE 100 MG PO (21:03)
[2020-04-08 04:32] LABS: Add Manual Diff / Slide Review NO; Basophils Absolute Auto 100 /uL (0-100); Basophils Percent Auto 0.4 % (0-2); Eosinophils Absolute Auto 100 /uL (0-450); Eosinophils Percent Auto 0.8 % (2-4); Hematocrit 34.6 % (36-46); Hemoglobin 11.4 g/dL (12.0-16.0); Lymphocytes Absolute Auto 1600 /uL (1100-4500); Lymphocytes Percent Auto 12.4 % (25-40); Mean Corpuscular HGB Conc 32.9 % (30-36); Mean Corpuscular Hemoglobin 29.3 PG (26-34); Monocytes Absolute Auto 900 /uL (0-900); Monocytes Percent Auto 7.1 % (3-14); Neutrophils Absolute Auto 10500 /uL (1500-7000); Neutrophils Percent Auto 79.3 % (50-75); Platelet Count 180 X10^3/uL (150-400); Red Blood Cell Count 3.89 X10^6/uL (4.0-5.2); Red Cell Distribution Width 14.7 % (11.6-14.8); White Blood Cell Count 13.3 X10^3/uL (4.5-11.0)
[2020-04-08] MEDS: IBUPROFEN 600 MG TABLET PO ×3 (04:32→19:30)
[2020-04-08] MEDS: OXYCODONE IR 5 MG TABLET PO ×2 (04:33→09:42)
--- NOTE | 2020-04-08 07:47 | P.PNOB_ITS ---
Subjective - OB Subjective Narrative: Doing well, pain is controlled with medications. She has taken only 1 narcotic since delivery. is going well, we are learning. Lochia less than menses. Advancing diet, tolerated well with no nausea. Excited to be taking a shower today. Has not ambulated much otherwise. Nolen out, voiding without discomfort. Positive flatus, no BM. Date Patient Seen: 04/08/20 Time Patient Seen: 07:48 Exam Vital Signs (past 8 hours): Oxygen Delivery Method Room Air Narrative Exam Narrative: General: NAD Skin: Color unremarkable, no rash nor lesions HEENT: Neck supple with midline trachea Lungs: CTAB Heart: Normal rate and regular rhythm, S1, S2 normal, no murmurs, click, rub or gallop Abdomen: FF, U-2, soft, non-tender, +BS Extremities: No edema, no cyanosis Objective Labs Result Diagrams: 04/08/20 04:10 Labs: Laboratory Results - last 24 hr 04/07/20 04/08/20 01:50 04:10 WBC 13.3 H RBC 3.89 L Hgb 11.4 L Hct 34.6 L MCV 89.0 MCH 29.3 MCHC 32.9 RDW 14.7 Plt Count 180 Neut % (Auto) 79.3 H Lymph % (Auto) 12.4 L [place] % (Auto) 7.1 Eos % (Auto) 0.8 L Baso % (Auto) 0.4 Neut # (Auto) 39215 H Lymph # (Auto) 1600 [place] # (Auto) 900 Eos # (Auto) 100 Baso # (Auto) 100 COVID-19 PCR Negative Assessment & Plan Plan day: 1 plan OB: routine postop care Comments: 1. Status post Primary LTCS at 39w5d secondary to footling breech 2. 3. Autosomal dominant hypophosphatemic rickets, maternal 4. Maternal obesity, BMI 37.97 5. Metabolic syndrome, chronic 6. Hyperlipidemia, chronic 7. Chronic pain secondary to osteomalacia from rickets, narcotic dependent, now weaned 8. Depression 9. Anxiety Plan: Routine postoperative care. Patient encouraged to ambulate today t.i.d. Will continue with support. Plan for discharge tomorrow. Patient is doing very well with pain management, may not be interested in continuing with her narcotics . Watching depression and anxiety closely, does not want to restart her medications at this time. Time Spent With Patient Time: Total time spent is greater than 50% in coordination of care (as documented) at patient's floor/unit and/or counseling patient: Time with patient: Greater than 35 minutes
[2020-04-08] MEDS: PRENATAL VIT,CALC/IRON/FOLIC 1 TABLET 1 TAB PO (09:43)
[2020-04-08] MEDS: DOCUSATE 250 MG CAPSULE PO (09:43)
[2020-04-08] MEDS: HYDROCODONE/ACET 5/325 TABLET 2 TAB PO ×4 (12:35→23:59)
[2020-04-08 16:46] VITALS: TEMP 36.4
[2020-04-08] MEDS: MAG HYDROX/ALUM/SIMETH 30 ML UDC PO (19:47)
[2020-04-08 20:31] VITALS: BP 124/73; PULSE 86; RESP 14; TEMP 36.4
[2020-04-09] MEDS: IBUPROFEN 600 MG TABLET PO ×2 (02:07→08:32)
[2020-04-09] MEDS: MAG HYDROX/ALUM/SIMETH 30 ML UDC PO (02:08)
[2020-04-09] MEDS: HYDROCODONE/ACET 5/325 TABLET 2 TAB PO ×2 (04:05→08:31)
[2020-04-09 06:54] LABS: Add Manual Diff / Slide Review NO; Basophils Absolute Auto 100 /uL (0-100); Basophils Percent Auto 0.6 % (0-2); Eosinophils Absolute Auto 200 /uL (0-450); Eosinophils Percent Auto 2.4 % (2-4); Hematocrit 34.4 % (36-46); Hemoglobin 11.6 g/dL (12.0-16.0); Lymphocytes Absolute Auto 1800 /uL (1100-4500); Lymphocytes Percent Auto 18.3 % (25-40); Mean Corpuscular HGB Conc 33.6 % (30-36); Mean Corpuscular Hemoglobin 30.1 PG (26-34); Mean Corpuscular Volume 89.4 fL (80-100); Monocytes Absolute Auto 700 /uL (0-900); Monocytes Percent Auto 6.7 % (3-14); Neutrophils Absolute Auto 7200 /uL (1500-7000); Platelet Count 226 X10^3/uL (150-400); Red Blood Cell Count 3.85 X10^6/uL (4.0-5.2); Red Cell Distribution Width 14.8 % (11.6-14.8)
--- NOTE | 2020-04-09 08:23 | PM.OBDS.1 ---
Discharge Providers Provider Date of admission: 04/07/20 00:24 Discharge Date: 04/09/20 Primary care physician: Tanisha More MD Consults: 04/07/20 01:33 Consult to Anesthesiology Urgent Comment: interface control officer Consulting Provider: Aida Kraus Reason for consultation: Has provider been notified: Yes 04/07/20 03:56 Consult to Resident Associate Routine Comment: Discharge provider: Tanisha More MD Summary Hospital Course Date Patient Seen: 04/09/20 Time Patient Seen: 08:45 Procedures: 1. Primary low-transverse section, Dr. More, 04/07/20, no complications 2. Spinal anesthesia, Dr. Kraus, 04/07/2020, no complications Hospital Course: Unremarkable. Mother is well. Tolerating full diet with no nausea or vomiting. Ambulating well. Lochia less than menses. On day of discharge, she is afebrile with stable vital signs throughout. Discharge diagnoses: 1. 35 yo 2. Status post primary LTCS at 39w5d secondary to footling breech 3. Autosomal dominant hypophosphatemic rickets, maternal 4. Maternal obesity, BMI 37.97 5. Borderline gestational diabetes 6. Metabolic syndrome, chronic 7. Hyperlipidemia, chronic 8. Chronic pain secondary to osteomalacia from rickets, narcotic dependent, now weaned 9. Depression 10. Anxiety Status at Discharge Cognitive/behavioral status at discharge: at baseline, oriented Functional status at discharge: independent ambulation Overall status at discharge: patient is progressing back to baseline Time Spent with Patient Time attestation: Time spent on Discharge and Coordination of post-hospital care: 35 minutes Objective Labs Result Diagrams: 04/09/20 06:40 Labs: Laboratory Results - last 24 hr 04/09/20 06:40 WBC 10.0 RBC 3.85 L Hgb 11.6 L Hct 34.4 L MCV 89.4 MCH 30.1 MCHC 33.6 RDW 14.8 Plt Count 226 Neut % (Auto) 72.0 Lymph % (Auto) 18.3 L [place] % (Auto) 6.7 Eos % (Auto) 2.4 Baso % (Auto) 0.6 Neut # (Auto) 7200 H Lymph # (Auto) 1800 [place] # (Auto) 700 Eos # (Auto) 200 Baso # (Auto) 100 Exam Vital Signs (past 8 hours): Oxygen Delivery Method Room Air Narrative Exam Narrative: General: NAD Skin: Color unremarkable, no rash nor lesions HEENT: Neck supple with midline trachea Lungs: CTAB Heart: Normal rate and regular rhythm, S1, S2 normal, no murmurs, click, rub or gallop Abdomen: FF, U-2, soft, non-tender, +BS, incision, clean, dry, intact. Extremities: No edema, no cyanosis Discharge Plan Discharge Plan Patient Disposition: Home Discharge orders & Medications Prescriptions: New hydrocodone-acetaminophen 5-325 mg Tablet 2 tab PO Q4HR PRN (Reason: Pain, Severe (7-10)) Qty: 90 RF: 0 ibuprofen 600 mg Tablet 600 mg PO Q6HR PRN (Reason: Fever/Mild Pain (1-3)) Qty: 90 RF: 3 docusate sodium 250 mg Capsule 250 mg PO BID PRN (Reason: constipation) Qty: 20 RF: 1 Prenatabs Rx 29 mg iron- 1 mg Tablet 1 tab PO DAILY Qty: 90 RF: 3 Follow up/Referrals: Tanisha More MD [Primary Care Provider] - 04/15/20 3:15 pm (check in 15 minutes prior to appointmnet) Diet/Activity/Treatments Diet: Diet as Tolerated Activity: as tolerated Other treatments: 1. Routine care 2. No driving for 2 weeks. 3. Call or return for uncontrolled pain, fever, intractable nausea or vomiting, trouble with urination, heavy vaginal bleeding greater than 1 pad per hour, suicidal/homicidal thoughts, signs or symptoms of infection, or any other concerns. Skin/Wound/Dressing Care Report to your healthcare provider any signs of infection, such as:: chills, fever, increased pain and unusual drainage Dressing: wash daily with soap/water Visit Report/Discharge Packet Instructions: DI for Prescription Opioid Use Stand Alone Forms: Discharge: Care Visit Report Forms: Patient Portal/API, Stroke Signs & Symptoms Discharge Data Primary Care Provider: Tanisha More Discharges patient from system. Discharge Date/Time: 04/09/20 11:00
[2020-04-09] MEDS: DOCUSATE 250 MG CAPSULE PO (08:29)
[2020-04-09] MEDS: PRENATAL VIT,CALC/IRON/FOLIC 1 TABLET 1 TAB PO (08:29)
== END 2020-04-09 11:00 | disposition home or self-care (01) | DRG 788 ==
PROVIDERS: Admitting Provider Student in an Organized Health Care Education/Training Program; PCP Student in an Organized Health Care Education/Training Program; Referring Provider Student in an Organized Health Care Education/Training Program; Visit Provider Student in an Organized Health Care Education/Training Program
PROC: 10D00Z1 Extraction of Products of Conception, Low, Open Approach (ICD-10-PCS; CPT 59514; principal; 2020-04-07 02:20)
DX: O32.8XX0 Maternal care for other malpresentation of fetus, not applicable or unspecified (principal); O99.214 Obesity complicating childbirth; Z3A.39 39 weeks gestation of pregnancy; Z37.0 Single live birth; Z11.59 Encounter for screening for other viral diseases; M83.8 Other adult osteomalacia; E88.81 Metabolic syndrome and other insulin resistance; Z79.84 Long term (current) use of oral hypoglycemic drugs; F32.9 Major depressive disorder, single episode, unspecified; F41.9 Anxiety disorder, unspecified; E78.5 Hyperlipidemia, unspecified
CPT/HCPCS: 36415; 59050; 76815; 84112; 85025; 86850; 86900; 86901; 87635; G0379; J1200; J1885; J2274; J2405; J2590

== ENCOUNTER → 2020-04-15 17:20 | Outpatient (CLI) | payer OTHER, SELFPAY ==
[2020-04-15 18:15] LABS: Add Manual Diff / Slide Review NO; Basophils Absolute Auto 100 /uL (0-100); Basophils Percent Auto 1.2 % (0-2); Eosinophils Absolute Auto 200 /uL (0-450); Eosinophils Percent Auto 2.6 % (2-4); Hematocrit 36.1 % (36-46); Hemoglobin 11.9 g/dL (12.0-16.0); Lymphocytes Absolute Auto 1900 /uL (1100-4500); Mean Corpuscular HGB Conc 32.9 % (30-36); Mean Corpuscular Hemoglobin 29.4 PG (26-34); Mean Corpuscular Volume 89.1 fL (80-100); Monocytes Absolute Auto 500 /uL (0-900); Monocytes Percent Auto 6.4 % (3-14); Neutrophils Absolute Auto 5600 /uL (1500-7000); Neutrophils Percent Auto 66.8 % (50-75); Platelet Count 373 X10^3/uL (150-400); Red Blood Cell Count 4.05 X10^6/uL (4.0-5.2); Red Cell Distribution Width 14.8 % (11.6-14.8); White Blood Cell Count 8.3 X10^3/uL (4.5-11.0)
[2020-04-15 18:27] LABS: Alanine Aminotransferase 24 IU/L (<35); Albumin 3.5 g/dL (3.5-5.0); Albumin Globulin Ratio 1.2 (1.0-2.8); Alkaline Phosphatase 122 U/L (38-126); Aspartate Aminotransferase 36 IU/L (14-36); BUN Creatinine Ratio 25.5 (6-22); Bilirubin Total 0.3 mg/dL (0.2-1.3); Blood Urea Nitrogen 14 mg/dL (7-17); Calcium 8.7 mg/dL (8.4-10.2); Carbon Dioxide 22 mmol/L (22-32); Chloride 106 mmol/L (98-107); Estimated Glomerular Filt Rate > 60.0 mL/min (>60); Glucose 78 mg/dL (70-100); HEMOLYSIS < 15 (0-50); Sodium 136 mmol/L (137-145); Total Protein 6.5 g/dL (6.3-8.2); Uric Acid 6.7 mg/dL (2.5-6.2)
[2020-04-15 19:04] LABS: Creatinine Urine Random 18.2 mg/dL; Protein (Total) Urine Random 12 mg/dL (0-12); Protein Creatinine Ratio Urine 0.65 GRAM/24H
== END ==
PROVIDERS: PCP Student in an Organized Health Care Education/Training Program; Referring Provider Student in an Organized Health Care Education/Training Program; Visit Provider Student in an Organized Health Care Education/Training Program
DX: R03.0 Elevated blood-pressure reading, without diagnosis of hypertension (principal)
CPT/HCPCS: 36415; 80053; 82570; 84156; 84550; 85025

== ENCOUNTER → 2023-01-19 09:06 | Outpatient (CLI) | payer OTHER, SELFPAY ==
--- NOTE | 2023-01-19 09:10 | DI.ECHO.S_ITS ---
[facility] +---------+ : : [address] : : : : [id number] : : : : Phone: [phone]+ Echocardiogram Report + + :Name: DANIE HERNANDEZ Study Date: 01/19/2023 Height: 59 in : :[facility] ReadingLocation: Weight: 188 lb : : Gender: Female BSA: 1.8 m2 : :: 1985 Age: 37 yrs BP: 141/83 mmHg: :Reason For Study: TACHYCARDIA HR: 86 : :Ordering Physician: CJ, : :KALPANA Performed By: ÓSCAR CHUA : :Referring: KALPANA CORONA : + + Interpretation Summary Normal sinus rhythm. Normal LV size, wall thickness, wall motion and LV systolic function. EF is 60-65%. Normal chamber sizes. No valvular abnormalities. No prior study available for comparison. Procedure: A two-dimensional transthoracic echocardiogram with color flow and Doppler was performed. The study quality was technically adequate. There is no prior echocardiogram noted for this patient. The patient was in normal sinus rhythm during the exam. The patient was in sinus rhythm with heart rates between 87-95 bpm during the exam. Left Ventricle: There is normal left ventricular wall thickness. Left ventricular systolic function is normal. The ejection fraction is estimated to be 60-65%. Right Ventricle: The right ventricle is normal in size and function. Atria: Both atria are normal in size. There is no Doppler evidence for an interatrial shunt. Mitral Valve: The mitral valve is normal in structure and function. There is trace mitral regurgitation. Aortic Valve: The aortic valve is trileaflet. The aortic valve opens well. There is no aortic valve stenosis. No aortic regurgitation is present. Tricuspid Valve: The tricuspid valve is normal in structure and function. No tricuspid regurgitation. Pulmonary artery pressures cannot be estimated because of the lack of a measurable TR jet velocity. Pulmonic Valve: The pulmonic valve leaflets are thin and pliable; valve motion is normal. There is trace pulmonic regurgitation. Great Vessels: The aortic root is normal size. The ascending aorta is normal in size. The IVC is of normal diameter and collapses greater than 50% with a sniff. This suggests a low right atrial pressure of 3 mm Hg. Pericardium/ Pleura There is no pericardial effusion. There is no pleural effusion. MMode/2D Measurements & Calculations LVIDd: 4.7 cm LVOT diam: 2.1 cm LVIDs: 2.9 cm Ao root diam: 3.4 cm FS: 38.3 % asc Aorta Diam: 2.9 cm IVSd: 0.90 cm LVPWd: 1.0 cm LV koch. diameter/BSA (cm/m^2): 2.6 LV sys. diameter/BSA (cm/m^2): 1.6 LA A2 area: 13.3 cm2 RA long axis: 4.8 cm LA A4 area: 15.9 cm2 LA length (vol): 5.2 cm LA vol: 34.6 ml LA vol index: 19.3 ml/m2 LVLs ap4: 5.6 cm LVLd ap2: 7.0 cm LVLs ap2: 5.5 cm TAPSE_phl: 1.8 cm Doppler Measurements & Calculations Ao V2 max: 119.0 cm/sec LVOT Max Samuel: 104.0 cm/sec Ao V2 mean: 83.5 cm/sec LV V1 max P.3 mmHg Ao max P.0 mmHg LV V1 VTI: 19.7 cm Ao mean P.0 mmHg ISABEL(I,D): 3.3 cm2 Ao V2 VTI: 20.7 cm ISABEL(V,D): 3.0 cm2 sev ratio: 0.95 ISABEL indexed to BSA (cm^2/m^2): 1.8 MV E max samuel: 97.3 cm/sec PA V2 max: 93.3 cm/sec MV A max samuel: 56.6 cm/sec PA V2 mean: 71.1 cm/sec MV E/A: 1.7 PA mean P.0 mmHg Med Peak E' Samuel: 6.9 cm/sec PA pr(Accel): 36.3 mmHg E/E' med: 14.2 Lat Peak E' Samuel: 8.9 cm/sec E/E' lat: 10.9 E/e' average: 12.5 MV dec time: 0.18 sec SV(LVOT): 68.2 ml AV VR_phl: 0.87 ISABEL(VTI)/BSA_phl: 1.8 MV P1/2t-pr_phl: 52.0 msec Electronically signed by: Kaylee Renee M.D. on Reading Physician:01/20/2023 02:42 AM
== END ==
PROVIDERS: PCP Family Medicine; Referring Provider Family Medicine; Visit Provider Family Medicine
DX: R00.0 Tachycardia, unspecified (principal)
CPT/HCPCS: 93246; 93306

== ENCOUNTER → 2023-01-19 09:52 | Outpatient (CLI) | payer OTHER, SELFPAY | PROVIDERS: PCP Family Medicine; Referring Provider Family Medicine; Visit Provider Family Medicine | DX: R00.0 Tachycardia, unspecified (principal) | CPT/HCPCS: 93246 ==

== ENCOUNTER → 2023-06-19 15:09 | Outpatient (CLI) | payer OTHER, SELFPAY ==
--- NOTE | 2023-06-20 03:10 | DI.NM.S_ITS ---
DATE OF SERVICE: 06/19/2023 PROCEDURE: Exercise stress test. INDICATIONS: Palpitation, hypertension. CARDIAC STRESS: Patient underwent exercise stress test under the supervision of an attending staff. She walked on Héctor protocol for 6 minutes and 2 seconds, achieved maximum heart rate of 176, which was 97 percent of target heart rate. Hypertensive blood pressure response. Resting blood pressure 130/90 and peak blood pressure 172/102 mmHg. Achieved 7 METs of workload. YARI positive 37%. Baseline rhythm sinus to mild sinus tachycardia up to 105 beats per minute. Rhythm sinus without any significant ST changes. During exercise, no convincing ischemic changes, however, patient has enhanced chronotropic response. At 2 minutes 50 seconds into the exercise, heart rate was 154 beats per minute. No other significant arrhythmias seen. Late recovery. In 3 minutes in recovery, heart rate dropped to 117 beats per minute. No chest pain, however, patient had fatigue and dyspnea. CONCLUSION: 1. Exercise stress test is negative for inducible ischemia. 2. Diminished exercise tolerance. 3. Hypertensive blood pressure response. 4. Enhanced chronotropic response with baseline sinus to sinus tachycardia. Late recovery. No anginal symptoms. Please consider possibility of POTS as well. Alessandra David - RO/puja/alexis doc#: [id number]/job#: [id number] dd: 06/19/2023 17:19:00 dt: 06/20/2023 03:02:00 DICTATING /COPIES TO: Jules Rosado MD COPIES MNE: RYAN;
== END ==
PROVIDERS: PCP Family Medicine; Referring Provider Internal Medicine Cardiovascular Disease; Visit Provider Internal Medicine Cardiovascular Disease
DX: R07.9 Chest pain, unspecified (principal); I10 Essential (primary) hypertension; R00.2 Palpitations
CPT/HCPCS: 93017

== ENCOUNTER → 2023-10-03 09:58 | Outpatient (CLI) | payer OTHER, SELFPAY ==
--- NOTE | 2023-10-03 10:00 | DI.RAD.S_ITS ---
PROCEDURE: XR FEMUR RT MIN 2V INDICATIONS: PAIN IN RIGHT KNEE, OSTEOPATHY TECHNIQUE: 2 views of the femur were acquired. COMPARISON: None. FINDINGS: Bones: Partially seen [id number] hip arthrosis. Sclerotic region and slight it deformity with cortical beaking is seen in the mid femur lateral cortex. A deformity is also again seen in the distal femur. There is a small lucency at the area of the cortical beaking. Soft tissues: No suspicious calcifications. IMPRESSION: Prior imaging from 2018, and more remote images, are not available for review in PACS. Partially seen [id number] right hip arthrosis. There is beaking and lucency in the lateral femoral midshaft, concerning for a developing pathologic fracture, correlate with history of bisphosphonate use. Dictated by: Chris Arciniega M.D. on 10/03/2023 at 12:23 Approved by: Chris Arciniega M.D. on 10/03/2023 at 12:50
--- NOTE | 2023-10-03 10:00 | DI.RAD.S_ITS ---
PROCEDURE: XR KNEE RT 3V INDICATIONS: PAIN IN RIGHT KNEE, OSTEOPATHY TECHNIQUE: 3 views of the knee were acquired. COMPARISON: [facility], , KNEE 3V RIGHT, 08/27/2008, 11:51. FINDINGS: Bones: Mild degenerative changes. Distal femoral deformity again seen. No acute fracture partially seen mid tibial deformity with fixation hardware also again seen. Soft tissues: Lateral view suboptimal to evaluate for joint effusion. IMPRESSION: No acute radiographic abnormality. Lateral view is suboptimal to evaluate for joint effusion. Mild degenerative changes. Old distal femur mid tibial fracture deformities are partially seen. If there is high concern for further derangement, consider MRI evaluation. Dictated by: Chris Arciniega M.D. on 10/03/2023 at 12:22 Approved by: Chris Arciniega M.D. on 10/03/2023 at 12:23
== END ==
PROVIDERS: PCP Family Medicine; Referring Provider Internal Medicine Rheumatology; Visit Provider Family Medicine
DX: M25.561 Pain in right knee (principal); E83.31 Familial hypophosphatemia; M90.80 Osteopathy in diseases classified elsewhere, unspecified site; M83.9 Adult osteomalacia, unspecified
CPT/HCPCS: 73552; 73562

== ENCOUNTER → 2024-11-08 07:19 | Outpatient (CLI) | payer OTHER, SELFPAY ==
--- NOTE | 2024-11-08 | DI.US.S_ITS ---
PROCEDURE: US ABDOMEN COMPLETE INDICATIONS: Right upper quadrant pain TECHNIQUE: Real-time scanning was performed of the abdominal and retroperitoneal organs, with image documentation. COMPARISON: None. FINDINGS: Liver: Liver is normal in size and homogeneous in echotexture. Gallbladder: Sonolucent without evidence cholelithiasis, gallbladder wall thickening or pericholecystic fluid. No sonographic Lewis sign. Common bile duct: 5.1 mm. Pancreas: Visualized portions of the pancreas are within normal limits. Spleen: Spleen is normal in size and homogeneous in echotexture. Kidneys: Kidneys are normal in size and echotexture. No hydronephrosis or nephrolithiasis. No solid mass lesions. Aorta: Visualized aorta is unremarkable without aneurysm. Iliac Arteries: Proximal common iliac arteries are unremarkable. IVC: Intrahepatic inferior vena cava is patent. Miscellaneous: No free abdominal fluid. IMPRESSION: Unremarkable ultrasound abdomen Approved by: Neto Hyatt M.D. on 11/08/2024 at 17:48
== END ==
PROVIDERS: PCP Family Medicine; Referring Provider Family Medicine; Visit Provider Family Medicine
DX: R10.11 Right upper quadrant pain (principal)
CPT/HCPCS: 76700